=== PATIENT | female | born 1965 | race Caucasian/White ===

== ENCOUNTER 2019-03-15 09:04 | Observation (INO) | payer BC ==
[~2019-03-15] VITALS: Ht 172.7 cm; Wt 122.6 kg
[2019-03-15] MEDS ORDERED: SODIUM CHLORIDE 0.9% 1,000 ML IV SCH (09:32)
[2019-03-15] MEDS ORDERED: METO25TA91 PO ×2 (09:51→09:55)
[2019-03-15] MEDS ORDERED: LEVO75TA PO (09:51)
[2019-03-15] MEDS ORDERED: AMLO-150 PO (09:51)
[2019-03-15] MEDS ORDERED: NORT50CA52 PO (09:51)
[2019-03-15] MEDS ORDERED: TRAZ50TA66 PO (09:56)
[2019-03-15 09:58] VITALS: BP 158/102
[2019-03-15] MEDS ORDERED: ADENOSINE 6 MG/2 ML ONE (13:02)
[2019-03-15] MEDS ORDERED: FENTANYL PF 100 MCG/2ML ONE (13:02)
[2019-03-15] MEDS ORDERED: MIDAZOLAM 1 MG/ML, 5ML ONE (13:02)
[2019-03-15] MEDS ORDERED: LIDOCAINE 2%, 20ML ONE (13:03)
[2019-03-15] MEDS ORDERED: ISOPROTERENOL 0.2MG/ML, 5ML ONE (13:03)
[2019-03-15] MEDS ORDERED: TRAZODONE 50MG TABLET PO PRN (15:00)
[2019-03-15 19:24] VITALS: BP 138/82
[2019-03-15 20:52] VITALS: BP 106/67
[2019-03-15] MEDS: NORTRIPTYLINE 50 MG CAPSULE PO SCH (20:59)
[2019-03-15] MEDS ORDERED: METOPROLOL SUCCINATE 25 MG TAB.ER.24H PO SCH (21:00)
[2019-03-16 01:18] VITALS: BP 129/88
[2019-03-16] MEDS ORDERED: LEVOTHYROXINE 75 MCG TABLET PO SCH (06:00)
[2019-03-16 07:13] VITALS: BP 127/84
[2019-03-16] MEDS ORDERED: METO25TA91 PO (08:43)
[2019-03-16] MEDS: NORTRIPTYLINE 50 MG CAPSULE PO SCH ×2 (08:43→09:00)
[2019-03-16] MEDS ORDERED: AMLODIPINE 5 MG TABLET PO SCH (09:00)
== END 2019-03-16 10:31 | disposition home or self-care (01) ==
LOC: CACL 09:04 → 5SO 17:24 → CACL 20:42 → INTOOBSV 20:43 → 5SO 20:43 → DCLOUNGE 03-16 10:05
PROVIDERS: ADMIT Internal Medicine Cardiovascular Disease; ATTEND Internal Medicine Cardiovascular Disease
DX: I47.1 Supraventricular tachycardia (principal); Z79.899 Other long term (current) drug therapy; Z88.8 Allergy status to other drugs, medicaments and biological substances
CPT/HCPCS: 36415; 84443; 93613; 93623; 93653; C1730; C1894; C2630; G0378; J2250; J3010; J3490; J0153

== ENCOUNTER → 2019-08-30 | Outpatient (CLI) | payer BC ==
[~2019-08-30] MED LIST: AMLO-150 PO; AMLO5TAB4 PO; APIX5TAB PO; LEVO75TA PO; LEVO75TA5 PO; METO25TA91 PO; METO50TA82 PO; NORT50CA52 PO; RIVA20TA PO; TRAZ50TA66 PO
== END | disposition home or self-care (01) ==
LOC: CVU 09:35
PROVIDERS: ATTEND Nurse Practitioner Family
DX: I07.1 Rheumatic tricuspid insufficiency (principal); I47.1 Supraventricular tachycardia; I10 Essential (primary) hypertension; Z85.72 Personal history of non-Hodgkin lymphomas; I42.9 Cardiomyopathy, unspecified; Z88.8 Allergy status to other drugs, medicaments and biological substances
CPT/HCPCS: 93306

== ENCOUNTER 2020-11-10 20:36 | Emergency (ER) | payer BC ==
[~2020-11-10] VITALS: Ht 172.7 cm; Wt 111.8 kg
[2020-11-10 20:42] VITALS: BP 154/106
[2020-11-10] MEDS ORDERED: SODIUM CHLORIDE FLUSH 10ML SYR IVF ONE (22:30)
[2020-11-10 23:03] LABS: BASOPHILS % (AUTO) 1 % (0-1); EOSINOPHILS % (AUTO) 2 % (1-7); LYMPHOCYTES % (AUTO) 36 % (22-44); MEAN CORPUSCULAR HEMOGLOBIN 28.8 pg (27.0-34.8); MEAN CORPUSCULAR HGB CONC 33.7 g/dL (32.4-35.8); MONOCYTES % (AUTO) 11 % (2-9); NEUTROPHILS % (AUTO) 49 % (42-75); PLATELET COUNT 271 x10^3/uL (130-400); RED BLOOD COUNT 5.07 x10^6/uL (3.82-5.3); RED CELL DISTRIBUTION WIDTH 13.8 % (9.6-15.2)
[2020-11-10 23:12] LABS: ALBUMIN 3.7 g/dL (3.4-5.0); ANION GAP 6 mmol/L (5-15); CALCIUM 9.6 mg/dL (8.5-10.1); CHLORIDE 106 mmol/L (98-107); MD NO
[2020-11-10 23:23] LABS: ALANINE AMINOTRANSFERASE 33 U/L (12-78); ALKALINE PHOSPHATASE 119 U/L (45-117); BILIRUBIN,TOTAL 0.4 mg/dL (0.2-1.0); CREATININE 0.84 mg/dL (0.55-1.02); FREE T4 (FREE THYROXINE) 1.06 ng/dL (0.76-1.46); TOTAL PROTEIN 8.2 g/dL (6.4-8.2); TROPONIN I < 0.015 ng/mL (0.000-0.045)
[2020-11-10] MEDS ORDERED: OMNIPAQUE 350 MG/ML, 100ML BOTTLE ONE (23:45)
[2020-11-11] MEDS ORDERED: SODIUM CHLORIDE FLUSH 10ML SYR IVF ONE
== END 2020-11-11 01:58 | disposition home or self-care (01) ==
LOC: ED 11-11 01:03
DX: G44.219 Episodic tension-type headache, not intractable (principal); R42 Dizziness and giddiness; M62.838 Other muscle spasm; E03.9 Hypothyroidism, unspecified; I48.91 Unspecified atrial fibrillation
CPT/HCPCS: 36415; 70450; 70496; 70498; 71045; 80053; 83735; 84439; 84443; 84484; 85025; 85379; 93005; 93971; 99285; Q9967

== ENCOUNTER → 2020-12-21 | Outpatient (CLI) | payer BC ==
[~2020-12-21] MED LIST changes: +REGADENOSON 0.4 MG/5 ML SYRINGE ONE
== END | disposition home or self-care (01) ==
LOC: CFH 12:42
PROVIDERS: ATTEND Physician Assistant Medical
DX: R07.9 Chest pain, unspecified (principal)
CPT/HCPCS: 78452; 93017; A9502; J2785